=== PATIENT | female | born 1970 | race Two or more races ===

== ENCOUNTER 2017-07-21 21:36 | Emergency (ER) | END 2017-07-22 01:31 | disposition home or self-care (01) ==

== ENCOUNTER 2019-05-16 17:23 | Emergency (ER) | payer OTHER ==
[~2019-05-16] VITALS: Ht 162.6 cm; Wt 77.6 kg
[~2019-05-16 17:23] MED LIST: D-ME118S24 PO; D-ME473S2 PO; IBUP-1542 PO; PENI500T PO
[2019-05-16 17:36] VITALS: BP 147/81; PULSE 87; RESP 18; Ht 162.6 cm; Wt 77.6 kg
== END 2019-05-16 18:23 | disposition home or self-care (01) ==
LOC: E/R 17:23
DX: J02.9 Acute pharyngitis, unspecified (principal)
CPT/HCPCS: 99283